=== PATIENT | male | born 1995 | race African-American/Black ===

== ENCOUNTER 2020-09-27 21:42 | Emergency (ER) | payer OTHER ==
[~2020-09-27] VITALS: Ht 170.2 cm; Wt 48.3 kg
[2020-09-27] MEDS ORDERED: ONDANSETRON 2MG/ML, 2ML ONE (22:07)
--- NOTE | 2020-09-27 22:21 | NUR ---
IVF infusing, pt in no acute distress, vitals are stable, RR equal and unlabored. Rails up, call carmichael in reach, aidet provided. Will continue to monitor.
[2020-09-27 22:25] LABS: BASOPHILS % (AUTO) 1 % (0-1); EOSINOPHILS % (AUTO) 0 % (1-7); LYMPHOCYTES % (AUTO) 38 % (22-44); MEAN CORPUSCULAR HEMOGLOBIN 29.8 pg (27.5-34.5); MEAN PLATELET VOLUME 7.6 fL (7.4-10.4); MONOCYTES % (AUTO) 16 % (2-9); NEUTROPHILS % (AUTO) 45 % (42-75); PLATELET COUNT 219 x10^3/uL (130-400); RED BLOOD COUNT 5.78 x10^6/uL (4.38-5.82); RED CELL DISTRIBUTION WIDTH 13.3 % (9.4-14.8)
[2020-09-27] MEDS ORDERED: SODIUM CHLORIDE 0.9% 1,000ML IVBOLUS ONE (22:30)
[2020-09-27] MEDS ORDERED: ONDANSETRON 2MG/ML, 2ML IVPush ONE (22:30)
[2020-09-27 22:34] LABS: ALANINE AMINOTRANSFERASE 23 U/L (12-78); ALBUMIN 4.2 g/dL (3.4-5.0); ANION GAP 12 mmol/L (5-15); CHLORIDE 99 mmol/L (98-107); CREATININE 0.94 mg/dL (0.7-1.3)
[2020-09-27 22:36] LABS: ALKALINE PHOSPHATASE 35 U/L (45-117); TOTAL PROTEIN 9.5 g/dL (6.4-8.2)
--- NOTE | 2020-09-27 22:56 | NUR ---
Gianni wagner in [facility] - 09/28/20 at 0004 by [email or web address] Under left axilla abscess, reports he shaved it earlier tonight.
--- NOTE | 2020-09-27 23:03 | NUR ---
Pt reports feeling better, no n/v while in ER. Is laughing and visiting with friend at bedside.
--- NOTE | 2020-09-28 00:04 | NUR ---
Waiting for dispo.
--- NOTE | 2020-09-28 00:07 | NUR ---
Pt tolerating po challenge, water. Pt says he feels a lot better since IV fluid.
--- NOTE | 2020-09-28 00:53 | NUR ---
Passed po challenge.
--- NOTE | 2020-09-28 00:53 | NUR ---
report from kiera kerr. pt states still feeling nausea but has not vomitted po fluids.
[2020-09-28] MEDS ORDERED: PROMETHAZINE 25 MG/ML, 1ML ONE (00:59)
[2020-09-28] MEDS ORDERED: PROMETHAZINE 25 MG/ML, 1ML IM ONE (01:00)
--- NOTE | 2020-09-28 01:01 | NUR ---
Hand off to BETTYE toscano
[2020-09-28 01:31] VITALS: BP 113/68
--- NOTE | 2020-09-28 01:37 | NUR ---
BREAK RN::PT RESTING CALMLY IN BED, PLAYING ON HIS PHONE. NO STATED NEEDS AT THIS TIME.
== END 2020-09-28 02:00 | disposition home or self-care (01) ==
LOC: ED 22:19
DX: R11.2 Nausea with vomiting, unspecified (principal); E86.0 Dehydration; E87.6 Hypokalemia; R19.7 Diarrhea, unspecified; R50.9 Fever, unspecified
CPT/HCPCS: 36415; 71045; 80053; 83690; 85025; 96361; 96372; 96374; 99284; J2405; J2550; J7030